=== PATIENT | male | born 2000 | race American Indian/Alaskan Native ===

== ENCOUNTER 2019-09-01 00:58 | Emergency (ER) | payer SELFPAY ==
[2019-09-01] MEDS ORDERED: FAMOTIDINE 20 MG/2 ML INJ IV ONE (03:39)
[2019-09-01] MEDS ORDERED: ONDANSETRON 4 MG/2 ML INJ IV ONE (03:39)
[2019-09-01] MEDS ORDERED: SODIUM CHLORIDE 0.9% 1000 ML 1,000 ML IV ONE (03:39)
--- NOTE | 2019-09-01 03:47 | Emergency Department Report ---
HPI - General Chief Complaint: GI Bleed Time Seen by Provider: 09/01/19 03:33 - HPI HPI: Room 8 The patient is a 19-year-old male presenting with a chief complaint of nausea vomiting. The patient states his nausea vomiting for one day. Patient denies abdominal pain diarrhea or fever. The patient states his vomitus has streaks of blood. Patient states his last bowel movement occurred 2-3 days ago and was within normal limits. Patient denies melena or bright red blood per rectum. Patient complains of nausea currently patient denies suicidal or homicidal ideation. Patient denies visual or auditory hallucinations Location: [See above] Duration: [See above] Quality: [See above] Severity: [See above] Timing: [See above] Context: [See above] Modifying factors: [See above] Associated signs and symptoms: [see above] ED Past Medical Hx - Past Medical History Previous Medical History?: No - Surgical History Past Surgical History?: No - Family History Family history: no significant - Social History Smoking Status: Current Every Day Smoker (1/2 pack per day) Substance Use Type: None (denies illicit drug use) - Medications Home Medications: Home Medications Medication Instructions Recorded Confirmed Last Taken Type Famotidine [Pepcid] 20 mg PO BID #30 tablet 09/01/19 Unknown Rx Ondansetron [Zofran ODT TAB] 8 mg PO Q8HR #20 tab.rapdis 09/01/19 Unknown Rx ED Review of Systems ROS: Stated complaint: VOMITING BLOOD Other details as noted in HPI Constitutional: denies: fever Eyes: denies: eye pain ENT: denies: throat pain Respiratory: no symptoms reported Cardiovascular: denies: chest pain Endocrine: no symptoms reported Gastrointestinal: nausea, vomiting. denies: abdominal pain, diarrhea, constipation, melena, hematochezia Genitourinary: denies: dysuria Musculoskeletal: denies: back pain Neurological: denies: headache Physical Exam - Physical Exam Vital Signs: Vital Signs 09/01/19 09/01/19 01:05 03:23 Temperature 97.9 F 97.9 F Pulse Rate 85 62 Respiratory 18 18 Rate Blood Pressure 121/68 Blood Pressure 127/73 [Right] O2 Sat by Pulse 97 98 Oximetry Physical Exam: GENERAL: The patient is well-developed well-nourished male lying on stretcher not appearing to be in acute distress. [] HEENT: Normocephalic. Atraumatic. Extraocular motions are intact. Patient has moist mucous membranes. NECK: Supple. Trachea midline CHEST/LUNGS: Clear to auscultation. There is no respiratory distress noted. HEART/CARDIOVASCULAR: Regular. There is no tachycardia. There is no gallop rub or murmur. ABDOMEN: Abdomen is soft, nontender. Patient has normal bowel sounds. There is no abdominal distention. SKIN: There is no rash. There is no edema. There is no diaphoresis. NEURO: The patient is awake, alert, and oriented. The patient is cooperative. The patient has normal speech MUSCULOSKELETAL: There is no evidence of acute injury. ED Course Vital Signs 09/01/19 09/01/19 01:05 03:23 Temperature 97.9 F 97.9 F Pulse Rate 85 62 Respiratory 18 18 Rate Blood Pressure 121/68 Blood Pressure 127/73 [Right] O2 Sat by Pulse 97 98 Oximetry ED Medical Decision Making - Lab Data Result diagrams: 09/01/19 03:51 09/01/19 03:51 Laboratory Tests 09/01/19 09/01/19 09/01/19 03:51 03:51 03:51 WBC 8.8 RBC 5.43 H Hgb 12.4 Hct 39.1 MCV 72 L MCH 23 L MCHC 32 RDW 13.7 Plt Count 411 Lymph % (Auto) 35.6 H [place] % (Auto) 10.9 H Eos % (Auto) 1.1 Baso % (Auto) 0.9 Lymph # 3.2 [place] # 1.0 H Eos # 0.1 Baso # 0.1 Seg Neutrophils % 51.5 Seg Neutrophils # 4.6 PT 12.8 INR 0.97 APTT 33.5 Sodium 143 Potassium 4.1 Chloride 104.6 Carbon Dioxide 25 Anion Gap 18 BUN 9 Creatinine 0.5 L Estimated GFR > 60 BUN/Creatinine Ratio 18 Glucose 98 Calcium 9.7 Total Bilirubin 0.40 AST 15 ALT 8 Alkaline Phosphatase 89 Total Protein 7.3 Albumin 4.1 Albumin/Globulin Ratio 1.3 Lipase 47 - Differential Diagnosis gastritis, peptic ulcer disease, nausea Critical care attestation.: If time is entered above; I have spent that time in minutes in the direct care of this critically ill patient, excluding procedure time. ED Disposition Clinical Impression: Nausea, Homelessness Disposition: DC-01 TO HOME OR SELFCARE Is pt being admited?: No Does the pt Need Aspirin: No Condition: Stable Instructions: Acute Nausea and Vomiting (ED) Additional Instructions: Return to the emergency department should you develop worsening symptoms, inability to tolerate food or liquids, high fever or any other concerns Prescriptions: Famotidine [Pepcid] 20 mg PO BID #30 tablet Ondansetron [Zofran ODT TAB] 8 mg PO Q8HR #20 tab.rapdis Referrals: [facility] [Outside] - 3-5 Days KYLEE PEDRAZA MD [Staff Physician] - 3-5 Days (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 Please follow-up with him for further evaluation) Forms: Accompanied Note Time of Disposition: 05:17 (awaiting social work dispo)
[2019-09-01 04:09] LABS: Basophils # (Auto) 0.1 K/mm3 (0.0-0.1); Basophils % (Auto) 0.9 % (0.0-1.8); Eosinophils # (Auto) 0.1 K/mm3 (0.0-0.4); Eosinophils % (Auto) 1.1 % (0.0-4.3); Hematocrit 39.1 % (35.5-45.6); Hemoglobin 12.4 gm/dl (11.8-15.2); Lymphocytes # (Auto) 3.2 K/mm3 (1.2-5.4); Lymphocytes % (Auto) 35.6 % (13.4-35.0); Mean Corpuscular HGB Conc 32 % (32-34); Mean Corpuscular Volume 72 fl (84-94); Monocytes % (Auto) 10.9 % (0.0-7.3); Platelet Count 411 K/mm3 (140-440); Red Blood Count 5.43 M/mm3 (3.65-5.03); Red Cell Distribution Width 13.7 % (13.2-15.2)
[2019-09-01 04:21] LABS: INR 0.97 (0.87-1.13)
[2019-09-01 04:22] LABS: Partial Thromboplastin Time 33.5 Sec. (24.2-36.6)
[2019-09-01 04:32] LABS: Alanine Aminotransferase 8 units/L (7-56); Albumin 4.1 g/dL (3.9-5); BUN/Creatinine Ratio 18; Blood Urea Nitrogen 9 mg/dL (9-20); Calcium 9.7 mg/dL (8.4-10.2); Hemolysis Index 11
[2019-09-01] MEDS ORDERED: METOCLOPRAMIDE 10 MG/2 ML INJ IV ONE (04:39)
[2019-09-01] MEDS ORDERED: METOCLOPRAMIDE 10 MG/2 ML INJ ONE (04:42)
[2019-09-01 09:03] VITALS: BP 106/66
== END 2019-09-01 09:38 | disposition home or self-care (01) ==
LOC: ED 00:58
DX: R11.2 Nausea with vomiting, unspecified (principal); F17.200 Nicotine dependence, unspecified, uncomplicated; Z59.0 Homelessness; Z79.899 Other long term (current) drug therapy
CPT/HCPCS: 36415; 80053; 83690; 85025; 85610; 85730; 96361; 96374; 96375; 99283; J2405; J2765; J7030